=== PATIENT | male | born 1970 | race Caucasian/White ===

== ENCOUNTER 2016-05-26 11:44 | Emergency (ER) | payer OTHER ==
--- NOTE | 2016-05-26 12:45 | UC ---
Respiratory Complaint HPI - HPI Summary HPI Summary: Ill starting 5 days ago, started with aches, nasal congestion, and ST. Starting 4 days ago has been having shaking chills every night with coughing, sweating, and trouble breathing. Hasn't been able to rest much this week. Denies hx of asthma or COPD. - History of Current Complaint Hx Obtained From: Patient Onset/Duration: Gradual Onset, Lasting Days Timing: Constant Severity Initially: Mild Severity Currently: Moderate Character: Cough: Productive Aggravating Factors: Deep Breaths, Recumbent Position Alleviating Factors: Upright Position Associated Signs And Symptoms: Positive: Fever, Chills, Wheezing, URI, Nasal Congestion <Lou Douglas - Last Filed: 05/26/16 13:09> <Kyra Sethi - Last Filed: 05/26/16 13:27> - History of Current Complaint Chief Complaint: UCRespiratory Stated Complaint: CONGESTION CHILLS Time Seen by Provider: 05/26/16 12:30 - Allergies/Home Medications Allergies/Adverse Reactions: Allergies Allergy/AdvReac Type Severity Reaction Status Date / Time Bee Venom Allergy Hives Verified 05/26/16 11:57 Home Medications: Home Medications Ibuprofen [Ibuprofen 200 MG] 4 mg PO Q6H 05/26/16 [History Confirmed 05/26/16] PMH/Surg Hx/FS Hx/Imm Hx Previously Healthy: Yes - Surgical History Surgical History: Yes Surgery Procedure, Year, and Place: tendons repaired in left hand 4 years ago - Family History Known Family History: Positive: Cardiac Disease, Hypertension, Diabetes - Social History Occupation: Employed Full-time Alcohol Use: Weekly Substance Use Type: Marijuana Substance Use Comment - Amount & Last Used: OCCASIONALLY Smoking Status (MU): Former Smoker Length of Time of Smoking/Using Tobacco: quit 12 years ago - Immunization History Most Recent Influenza Vaccination: none <Lou Douglas - Last Filed: 05/26/16 13:09> Review of Systems Constitutional: Chills, Fatigue Skin: Negative Eyes: Negative ENT: Negative Respiratory: Shortness Of Breath, Cough Cardiovascular: Negative Gastrointestinal: Negative Genitourinary: Negative Motor: Negative Neurovascular: Negative Musculoskeletal: Negative Neurological: Negative Psychological: Negative All Other Systems Reviewed And Are Negative: Yes <Lou Douglas - Last Filed: 05/26/16 13:09> Physical Exam Triage Information Reviewed: Yes Appearance: No Pain Distress, Obese Vital Signs: Initial Vital Signs Temp 97.0 F 05/26/16 11:57 Pulse 92 05/26/16 11:57 Resp 16 05/26/16 11:57 BP 159/91 05/26/16 11:57 Pulse Ox 92 05/26/16 11:57 Vital Signs Reviewed: Yes Eye Exam: Normal Eyes: Positive: Conjunctiva Clear ENT: Positive: Hearing grossly normal, Pharynx normal, Nasal congestion, TMs normal Dental Exam: Normal Neck exam: Normal Neck: Positive: Supple, Nontender Respiratory Exam: Other - occ dry cough Respiratory: Positive: No respiratory distress, Wheezing. Negative: Rhonchi Cardiovascular Exam: Normal Cardiovascular: Positive: RRR, No Murmur Musculoskeletal Exam: Normal Neurological Exam: Normal Neurological: Positive: Alert Psychological Exam: Normal Skin Exam: Normal <Lou Douglas - Last Filed: 05/26/16 13:09> Vital Signs: Initial Vital Signs Temp 97.0 F 05/26/16 11:57 Pulse 92 05/26/16 11:57 Resp 16 05/26/16 11:57 BP 159/91 05/26/16 11:57 Pulse Ox 92 05/26/16 11:57 <Kyra Sethi - Last Filed: 05/26/16 13:27> UC Diagnostic Evaluation - Laboratory O2 Sat by Pulse Oximetry: 92 <Lou Douglas - Last Filed: 05/26/16 13:09> Re-Evaluation - Re-Evaluation 1 Re-Evaluation Time: 13:26 Change: Improved - slightly improved air movement, still coughing <Lou Douglas - Last Filed: 05/26/16 13:09> Respiratory Course/Dx - Differential Dx/Diagnosis Provider Diagnoses: influenza. bronchospasm. elevated blood pressure due to discomfort <Lou Douglas - Last Filed: 05/26/16 13:09> Discharge <Lou Douglas - Last Filed: 05/26/16 13:09> <Kyra Sethi - Last Filed: 05/26/16 13:27> - Discharge Plan Condition: Stable Disposition: HOME Prescriptions: Albuterol HFA INHALER* [Ventolin HFA Inhaler*] 1 - 2 puff INH Q4H PRN #1 mdi PRN Reason: wheeze, cough predniSONE TAB* [Deltasone TAB*] 50 mg PO DAILY #4 tab Patient Education Materials: Influenza (ED), Bronchospasm (ED) Referrals: No Primary Care Phys,NOPCP [Primary Care Provider] - Additional Instructions: Call or return if you develop increasing fever, shortness of breath, chest pain , bloody sputum, or otherwise worsen. If you have not improved at all after several days, contact your primary care physician or return here. Attestation Statement User Type: Provider - I was available for consult. This patient was seen by the YISSEL. The patient was not presented to, seen by, or examined by me. <Kyra Sethi - Last Filed: 05/26/16 13:27>
[2016-05-26] MEDS ORDERED: Albuterol 2.5 MG/3 ML NEB.SOL* (0.083%) INH ONE (13:03)
--- NOTE | 2016-05-26 13:04 | RAD ---
HISTORY: Cough, rigors, chest congestion COMPARISONS: None VIEWS: 2: Frontal dual-energy and lateral views of the chest. FINDINGS: CARDIOMEDIASTINAL SILHOUETTE: The cardiomediastinal silhouette is normal. MIHIR: The mihir are normal. PLEURA: The costophrenic angles are sharp. No pleural abnormalities are noted. LUNG PARENCHYMA: The lungs are clear. ABDOMEN: The upper abdomen is clear. There is no subphrenic gas. BONES AND SOFT TISSUES: No bone or soft tissue abnormalities are noted. OTHER: None. IMPRESSION: NO ACTIVE CARDIOPULMONARY DISEASE.
== END 2016-05-26 14:05 | disposition home or self-care (01) ==
LOC: UCEAST 11:44
DX: J11.1 Influenza due to unidentified influenza virus with other respiratory manifestations (principal); F12.90 Cannabis use, unspecified, uncomplicated; J98.01 Acute bronchospasm; R03.0 Elevated blood-pressure reading, without diagnosis of hypertension; Z91.030 Bee allergy status; Z87.891 Personal history of nicotine dependence
CPT/HCPCS: 71020; 87502; 99212; G0463

== ENCOUNTER 2016-06-12 09:56 | Emergency (ER) | payer OTHER ==
--- NOTE | 2016-06-12 15:22 | UC ---
Head Injury HPI - HPI Summary HPI Summary: LAST NIGHT PT WAS LEANING BACKWARDS IN A CHAIR WHEN HE FELL BACKWARDS AND STRUCK HIS HEAD ON AN IPHONE VP SECURITY. HEAD WAS FORCED FORWARD AND PT IS C/O NECK PAIN AND DIFFICULTY CONCENTRATING. STATES THAT LAST NIGHT AFTER THE INJURY HIS DAUGHTER STATED HE WAS CONFUSING SOME OF HIS WORDS. HAS MILD HEADACHE WHERE THE BUMP ON HIS HEAD IS. NO NAUSEA, DIZZINESS OR VISUAL DISTURBANCE. SX ARE MUCH BETTER TODAY. - History Of Current Complaint Chief Complaint: UCHeadInjury Stated Complaint: HEAD AND NECK INJURY Time Seen by Provider: 06/12/16 11:47 Hx Obtained From: Patient Onset/Duration: Sudden Onset, Lasting Hours, Still Present - BUT MUCH BETTER Severity Currently: Moderate Severity Initially: Mild Pain Intensity: 0 Pain Scale Used: 0-10 Numeric Character: Dull Aggravating Factor(s): Nothing Alleviating Factor(s): Nothing - Allergies/Home Medications Allergies/Adverse Reactions: Allergies Allergy/AdvReac Type Severity Reaction Status Date / Time Bee Venom Allergy Hives Verified 05/26/16 11:57 PMH/Surg Hx/FS Hx/Imm Hx Previously Healthy: Yes - Surgical History Surgical History: Yes Surgery Procedure, Year, and Place: tendons repaired in left hand 4 years ago - Family History Known Family History: Positive: Cardiac Disease, Hypertension, Diabetes - Social History Alcohol Use: Weekly Substance Use Type: Marijuana Substance Use Comment - Amount & Last Used: OCCASIONALLY Smoking Status (MU): Former Smoker Length of Time of Smoking/Using Tobacco: quit 12 years ago - Immunization History Most Recent Influenza Vaccination: none Review of Systems Constitutional: Negative Skin: Other - ABRASION SCALP Respiratory: Negative Cardiovascular: Negative Gastrointestinal: Negative Neurological: Headache All Other Systems Reviewed And Are Negative: Yes Physical Exam Triage Information Reviewed: Yes Appearance: Well-Appearing, No Pain Distress, Well-Nourished Vital Signs: Initial Vital Signs Temp 97.6 F 06/12/16 10:08 Pulse 95 06/12/16 10:08 Resp 18 06/12/16 10:08 BP 153/92 06/12/16 10:08 Pulse Ox 99 06/12/16 10:08 Vital Signs Reviewed: Yes Eyes: Positive: Conjunctiva Clear ENT: Positive: Hearing grossly normal, TMs normal Neck: Positive: Supple, Nontender, No Lymphadenopathy Respiratory Exam: Normal Cardiovascular Exam: Normal Abdomen Description: Positive: Soft Musculoskeletal: Positive: No Edema Neurological: Positive: Alert, Other: - CN II-XII GROSSLY INTACT BILATERALLY. 5/ 5 STRENGTH Psychological: Positive: Age Appropriate Behavior Skin: Positive: rashes Head Injury Course/Dx - Differential Dx/Diagnosis Provider Diagnoses: CONCUSSION Discharge - Discharge Plan Condition: Stable Disposition: HOME Patient Education Materials: Concussion (ED) Referrals: No Primary Care Phys,NOPCP [Primary Care Provider] - Additional Instructions: GO TO THE ER WITHOUT FAIL IF YOU DEVELOP UNEQUAL PUPILS, VISUAL DISTURBANCE, GAIT INSTABILITY, SPEECH DIFFICULTY, NAUSEA/VOMITING, WORSENING HEADACHE, DIZZINESS, CONFUSION, WEAKNESS OR ANY OTHER CONCERNING SYMPTOMS. YOUR BLOOD PRESSURE WAS A BIT ELEVATED HERE (153/92). PLEASE FOLLOW-UP WITH A PRIMARY CARE DOCTOR WITHIN 4 WEEKS FOR RE-EVALUATION. CALL THE NUMBER BELOW FOR ASSISTANCE IN ESTABLISHING WITH A PCP An additional resource available to assist in finding the appropriate physician for your health care needs is the [facility] ([facility]). You may contact them by calling [phone].
== END 2016-06-12 12:08 | disposition home or self-care (01) ==
LOC: UCEAST 09:56
DX: S06.0X9A Concussion with loss of consciousness of unspecified duration, initial encounter (principal); W07.XXXA Fall from chair, initial encounter; Y93.9 Activity, unspecified; Y92.9 Unspecified place or not applicable; Z87.891 Personal history of nicotine dependence
CPT/HCPCS: 99211; G0463